=== PATIENT | female | born 1990 | race African-American/Black ===

== ENCOUNTER 2018-03-06 12:44 | Emergency (ER) | payer MEDICAID | END 2018-03-06 14:50 | disposition left against medical advice (07) | LOC: ER 14:49 | DX: R68.89 Other general symptoms and signs (principal); Z53.21 Procedure and treatment not carried out due to patient leaving prior to being seen by health care provider ==

== ENCOUNTER 2018-03-07 03:11 | Emergency (ER) | payer MEDICAID ==
[~2018-03-07] VITALS: Ht 172.7 cm; Wt 73.0 kg
[2018-03-07 03:20] VITALS: BP 107/74
== END 2018-03-07 06:03 | disposition left against medical advice (07) ==
LOC: ER 03:11
DX: Z53.21 Procedure and treatment not carried out due to patient leaving prior to being seen by health care provider (principal)